=== PATIENT | male | born 1955 | race Caucasian/White ===

== ENCOUNTER 2018-01-01 05:31 | Emergency (ER) | payer MEDICARE ==
[2018-01-01] MEDS ORDERED: MORPHINE SULFATE 4MG/ML PREFILLED SYRINGE IVP ONE ×2 (05:42→07:00)
[2018-01-01] MEDS ORDERED: CEFTRIAXONE SODIUM 1 GM in 0.9 % SODIUM CHLORIDE 100ML 100 ML IVPB ONE (05:42)
--- NOTE | 2018-01-01 05:49 | Emergency Department Record ---
History of Present Illness - General Source: Patient Mode of Arrival: Wheelchair Limitations: No limitations - History of Present Illness Initial comments: 62 yo male presents with pain over the maxillary area, teeth, and sinuses for a 4 weeks. The pain has gradually increased. He has a history of sinus issues, and chronic poor dentition. No fevers. He has some mild swelling on the right side of the face over the maxillary area with mild redness that started on . No headache, dizziness, vomiting, vision changes, cough, shortness of breath. His appetite is decreased. He has not called his dentist of PCP in the last few weeks since this pain started. He is on Coumadin and Plavix. MD complaint: Tooth pain, Other (facial sinus pain) Onset/Timin -: Days(s) Location: Upper lip, Other Severity: Severe Severity scale (1-10): 10 Quality: Sharp Consistency: Constant, Getting worse Improves with: None Worsens with: Eating, Movement Context- Dental: History of dental caries, Poor dental care Associated Symptoms: Toothache <JENNA RILEY - Last Filed: 01/01/18 07:04> <Aiden Romero - Last Filed: 01/01/18 08:13> - General Chief complaint: ENT Stated complaint: SINUS PAIN Time Seen by Provider: 01/01/18 05:32 - Related Data Home Medications Medication Instructions Recorded Confirmed Last Taken Insulin Aspart [Novolog] 15 unit SQ TID 01/01/18 01/01/18 12/31/17 Insulin Glargine,Hum.rec.anlog 36 unit SQ BID 01/01/18 01/01/18 12/31/17 [Lantus] Previous Rx's Medication Instructions Recorded Cephalexin [Keflex] 500 mg PO TID #21 cap 01/01/18 Clindamycin HCl [Cleocin HCl] 300 mg PO TID #21 capsule 01/01/18 Hydrocodone/Acetaminophen [Bigler 1 tab PO Q6H PRN #10 tab 01/01/18 5mg/325mg] Allergies Allergy/AdvReac Type Severity Reaction Status Date / Time No Known Drug Allergies Allergy Verified 10/20/15 14:41 Travel Screening - Travel/Exposure Within Last 30 Days Have you traveled within the last 30 days?: No - Travel Symptoms Symptom Screening: None <JENNA RILEY - Last Filed: 01/01/18 07:04> Review of Systems Constitutional: Denies: Chills, Fever, Weakness Eyes: Denies: Eye discharge, Eye pain, Photophobia, Vision change ENT: Reports: Dental pain. Denies: Congestion, Ear pain, Epistaxis, Hearing loss, Throat pain Respiratory: Denies: Cough, Dyspnea, Hemoptysis, Stridor, Wheezes Cardiovascular: Denies: Chest pain, Palpitations, Syncope Endocrine: Denies: Fatigue, Polydipsia, Polyuria Gastrointestinal: Denies: Abdominal pain, Diarrhea, Nausea, Vomiting Genitourinary: Denies: Dysuria, Frequency, Hematuria Musculoskeletal: Denies: Arthralgia, Back pain, Joint swelling, Myalgia Skin: Denies: Bruising, Change in color, Rash Neurological: Denies: Abnormal gait, Headache, Numbness, Tingling, Tremors, Vertigo, Weakness Psychiatric: Denies: Anxiety Hematological/Lymphatic: Reports: Blood Clots (Hx of DVT). Denies: Easy bleeding, Easy bruising, Swollen glands <JENNA RILEY - Last Filed: 01/01/18 07:04> Past Medical History - SOCIAL HISTORY Smoking Status: Current every day smoker Alcohol Use: Rare Drug Use: None - RESPIRATORY Hx Respiratory Disorders: Yes Hx Bronchitis: Yes Hx Pneumonia: Yes (hx of walking pneumonia last: 7-8yrs ago) Hx Pulmonary Embolism: Yes ( both lungs) Hx Sleep Apnea: Yes Hx of CPAP: Yes - CARDIOVASCULAR Hx Cardiac Cath: Yes Hx Chest Pain: Yes (occasionally, but does not last for more than 1 minute) Hx Deep Vein Thrombosis: Yes () Hx Heart Attack: Yes ([id number] 4 NE's all together) Hx Hypertension: Yes Hx Coronary Artery Disease: Yes Hx Coronary Stent: Yes (7) Comment:: High cholesterol - NEURO Hx Neuro Disorders: Yes Hx CVA: Yes Hx Dizziness: Yes Hx Neuropathy: Yes (right hip) - GI Hx GI Disorders: Yes Hx Abdominal Pain: Yes Hx Reflux: Yes Hx Rectal Bleeding: Yes Hx Wt Loss/Wt Gain: Yes (100 in 1 year) - Hx Genitourinary Disorders: No - ENDOCRINE Hx Endocrine Disorders: Yes - MUSCULOSKELETAL Hx Musculoskeletal Disorders: Yes Hx Arthritis: Yes (hands) Hx Back Injury: Yes (thrown from horse) - PSYCH Hx Psych Problems: Yes Hx Depression: Yes - HEMATOLOGY/ONCOLOGY Hx Hematology/Oncology Disorders: Yes Hx Anemia: Yes <JENNA RILEY - Last Filed: 01/01/18 07:04> Family Medical History Any Significant Family History?: Yes Hx Cancer: Father, Mother, Grandparents *Cancer Comment: , lung Hx Diabetes: Brother/Sister Hx Heart Disease: Brother/Sister <JENNA RILEY - Last Filed: 01/01/18 07:04> Physical Exam - General General Appearance: Alert, Oriented x3, Cooperative, No acute distress Limitations: No limitations - Head Head exam: Atraumatic, Normocephalic. negative: Normal inspection Image of Face/Head: 1 - tenderness, mild swelling, mild erythema - Eye Eye exam: Normal appearance, Periorbital swelling (mild lower lid swelling), Periorbital tenderness (tender under the right eye). negative: Conjunctival injection, Scleral icterus - ENT ENT exam: Mucous membranes moist, TM's normal bilaterally (Normal R TM). negative: Normal exam, Normal orophraynx Ear exam: Normal external inspection Nasal Exam: Normal inspection Mouth exam: Tongue normal. negative: Drooling, Muffled voice, Tongue elevation Teeth exam: Dental caries, Dental tenderness # Throat exam: Normal inspection. negative: Tonsillar erythema, Tonsillomegaly, Tonsillar exudate, R peritonsillar mass, L peritonsillar mass - Neck Neck exam: Normal inspection, Full ROM. negative: Lymphadenopathy, Tenderness - Respiratory Respiratory exam: Normal lung sounds bilaterally. negative: Respiratory distress - Cardiovascular Cardiovascular Exam: Regular rate, Normal rhythm, Normal heart sounds - GI/Abdominal GI/Abdominal exam: Soft. negative: Tenderness - Rectal Rectal exam: Deferred - exam: Deferred - Extremities Extremities exam: Full ROM - Back Back exam: Reports: Normal inspection - Neurological Neurological exam: Alert, Normal gait, Oriented X3. negative: Altered - Psychiatric Psychiatric exam: Normal affect, Normal mood. negative: Agitated, Anxious - Skin Skin exam: Dry, Intact, Normal color, Warm <JENNA RILEY - Last Filed: 01/01/18 07:04> Course Vital Signs 01/01/18 05:36 Temperature 98 F Pulse Rate [ 67 Pulse Ox Probe] Respiratory 16 Rate Blood Pressure 181/95 [Left Arm] Pulse Ox 96 - Reevaluation(s) Reevaluation #1: 01/01/18 05:50 The vitals were reviewed No acute changes The examination is consistent with infection in the maxillary area. CT scan with contrast ordered. 01/01/18 06:16 BMP reviewed. GLucose elevate at 379 HCO3 21 AG is 21 01/01/18 06:16 The patient states he does not regularly check his sugar. The last few months his sugar has been mostly in the 300's when checked He last spoke with his doctor about his sugar several months ago. 01/01/18 06:58 Ph is 7.34 <JENNA RILEY - Last Filed: 01/01/18 07:04> Vital Signs 01/01/18 01/01/18 05:36 07:07 Temperature 98 F Pulse Rate [ 67 61 Pulse Ox Probe] Respiratory 16 20 Rate Blood Pressure 181/95 [Left Arm] Blood Pressure 159/79 [Right Arm] Pulse Ox 96 94 L - Reevaluation(s) Reevaluation #2: The patient is doing well at this time. His temp is normal but he is still having pain above the teeth over the R maxilla. The CT does demonstrate an infection but no abscess. We will discharge the patient on oral Abx's and have him F/U with his Dentist and family doctor. 01/01/18 08:11 <Aiden Romero - Last Filed: 01/01/18 08:13> Medical Decision Making - Lab Data Result diagrams: 01/01/18 05:48 01/01/18 05:48 <JENNA RILEY - Last Filed: 01/01/18 07:04> - Lab Data Result diagrams: 01/01/18 05:48 01/01/18 05:48 Lab Results 01/01/18 01/01/18 01/01/18 Range/Units 05:48 05:48 05:48 WBC 8.0 (4.2-12.2) K/uL RBC 4.21 L (4.40-5.70) M/uL Hgb 12.2 L (14.0-18.0) gm/dl Hct 36.0 L (42.0-52.0) % MCV 85.5 (81-97) fl MCH 28.9 (27-33) pg MCHC 33.9 (32-36) g/dl RDW 13.6 (11.5-14.5) % Plt Count 292 (130-400) K/uL MPV 9.8 (7.4-10.4) fl Gran % 64.9 (47-80) % Lymphocytes % 21.8 (16-45) % Monocytes % 10.7 H (0-9) % Eosinophils % 2.4 (0-6) % Basophils % 0.2 (0-6) % PT 24.3 H (9.5-12.1) SECONDS INR 2.2 VBG pH (7.33-7.43) Sodium 137 (136-145) mmol/L Potassium 4.2 (3.4-4.5) mmol/L Chloride 95 L (98-107) mmol/L Carbon Dioxide 21.0 L (22-29) mmol/L Anion Gap 21.0 H (7-16) BUN 22 (8-23) mg/dL Creatinine 1.2 (0.7-1.2) mg/dL Estimated GFR > 60 mL/min POC Glucose (70-110) mg/dL Random Glucose 379 H (74-109) mg/dL Calcium 9.1 (8.8-10.2) mg/dL 18 01/01/18 Range/Units 06:30 07:39 WBC (4.2-12.2) K/uL RBC (4.40-5.70) M/uL Hgb (14.0-18.0) gm/dl Hct (42.0-52.0) % MCV (81-97) fl MCH (27-33) pg MCHC (32-36) g/dl RDW (11.5-14.5) % Plt Count (130-400) K/uL MPV (7.4-10.4) fl Gran % (47-80) % Lymphocytes % (16-45) % Monocytes % (0-9) % Eosinophils % (0-6) % Basophils % (0-6) % PT (9.5-12.1) SECONDS INR VBG pH 7.34 (7.33-7.43) Sodium (136-145) mmol/L Potassium (3.4-4.5) mmol/L Chloride (98-107) mmol/L Carbon Dioxide (22-29) mmol/L Anion Gap (7-16) BUN (8-23) mg/dL Creatinine (0.7-1.2) mg/dL Estimated GFR mL/min POC Glucose 337 H (70-110) mg/dL Random Glucose (74-109) mg/dL Calcium (8.8-10.2) mg/dL <Aiden Romero - Last Filed: 01/01/18 08:13> Disposition Disposition: Discharge <JENNA RILEY - Last Filed: 01/01/18 07:04> Time of Disposition: 08:13 <Aiden Romero - Last Filed: 01/01/18 08:13> Clinical Impression: Cellulitis Disposition: Home, Self-Care Condition: (1) Good Instructions: Dental Abscess (ED), Cellulitis (ED) Additional Instructions: Call your doctor for a recheck today Call your dentist for follow up this week Take the antibiotics as directed Return if worse, fever or new concerns Prescriptions: Cephalexin [Keflex] 500 mg PO TID #21 cap Clindamycin HCl [Cleocin HCl] 300 mg PO TID #21 capsule Hydrocodone/Acetaminophen [Bigler 5mg/325mg] 1 tab PO Q6H PRN #10 tab PRN Reason: Pain - General Forms: Patient Portal Access Quality - Blood Pressure Screening Does Patient Have Any of the Following: No Blood Pressure Classification: Hypertensive Reading Systolic Measurement: 181 Diastolic Measurement: 95 <JENNA RILEY - Last Filed: 01/01/18 07:04> - Blood Pressure Screening Does Patient Have Any of the Following: No Blood Pressure Classification: Hypertensive Reading Systolic Measurement: 159 Diastolic Measurement: 79 <Aiden Romero - Last Filed: 01/01/18 08:13>
[2018-01-01 05:59] LABS: BASO % 0.2 % (0-6); EOS % 2.4 % (0-6); GRAN % 64.9 % (47-80); HEMOGLOBIN 12.2 gm/dl (14.0-18.0); LYMPH % 21.8 % (16-45); MEAN CELL VOLUME 85.5 fl (81-97); MEAN CORPUSCULAR HEMOGLOBIN 28.9 pg (27-33); MEAN CORPUSCULAR HGB CONC 33.9 g/dl (32-36); MEAN PLATELET VOLUME 9.8 fl (7.4-10.4); MONO % 10.7 % (0-9); PLATELET COUNT 292 K/uL (130-400); RED BLOOD COUNT 4.21 M/uL (4.40-5.70); RED CELL DISTRIBUTION WIDTH 13.6 % (11.5-14.5)
[2018-01-01 06:08] LABS: BLOOD UREA NITROGEN 22 mg/dL (8-23); CREATININE 1.2 mg/dL (0.7-1.2); EST GLOMERULAR FILTRATION RATE > 60 mL/min
[2018-01-01 06:10] LABS: GLUCOSE,RANDOM 379 mg/dL (74-109); INR 2.2; PROTHROMBIN TIME (PATIENT) 24.3 SECONDS (9.5-12.1)
[2018-01-01] MEDS ORDERED: HUMULIN R 100 UNIT/ML VIAL SQ ONE (06:15)
[2018-01-01] MEDS ORDERED: 0.9 % SODIUM CHLORIDE 1,000 ML BAG IV ONE (06:15)
--- NOTE | 2018-01-02 08:24 | CT SCAN REPORT ---
EXAM: CT OF THE MAXILLOFACIAL BONES WITHOUT AND WITH CONTRAST HISTORY: FACIAL SWELLING AND DENTAL PAIN FOR THREE DAYS, NO KNOWN INJURY. FACIAL PAIN IS LOCATED BILATERALLY ACROSS THE FACE. TECHNIQUE: Axial CT scan of the maxillofacial structures was performed both prior to and then after the intravenous administration of 100 ml of Omnipaque 300 as the IV contrast. A preliminary report was provided by [facility] at the time of the scan. Comparison: None. FINDINGS: The paranasal sinuses appear clear with no air fluid levels evident within the paranasal sinuses. The visualized mastoids and middle ear cavities also appear clear. The orbits appear unremarkable. There is some deviation of the nasal septum to the left and there is mikael bullosa formation in the right middle turbinate. Prominent degenerative change at the odontoid-anterior arch of C1 articulation. Narrowing of some of the upper cervical intervertebral disk spaces as well with some associated hypertrophic spurring. There does appear to be some soft tissue swelling overlying the anterior aspect of the face at the level of the mandible and on the right along the inferior aspect of the maxilla anteriorly as well. No discreet fluid collection to suggest an abscess identified. Several of the teeth, particularly maxillary teeth, are absent, however, there is probably a large periapical abscess associated with the root of the right lateral maxillary incisor with likely a large dental caries involving this tooth as well. There is probably less prominent radiolucency around the root of the right bicuspid as well. There is dental disease involving the right maxillary lateral incisor in particular may be the source of the facial pain/infection and dental consultation may be useful. IMPRESSION: 1. THE PARANASAL SINUSES ALL APPEAR ESSENTIALLY CLEAR. 2. DEVIATION OF THE NASAL SEPTUM TO THE LEFT WITH MIKAEL BULLOSA FORMATION RIGHT MIDDLE TERMINATE. 3. EXTENSIVE DENTAL DISEASE INVOLVING THE RIGHT MAXILLARY LATERAL INCISOR WITH SOME SOFT TISSUE SWELLING IN THE FACE ANTERIOR TO THIS IN PARTICULAR. THIS MAY REPRESENT SOME ASSOCIATED CELLULITIS. NO DISCREET ABSCESS IDENTIFIED. JOB NUMBER: [id number] [facility]
== END 2018-01-01 08:24 | disposition home or self-care (01) ==
LOC: ER 05:31
DX: L03.211 Cellulitis of face (principal); K02.9 Dental caries, unspecified; R51 Headache; F17.210 Nicotine dependence, cigarettes, uncomplicated; I10 Essential (primary) hypertension; I25.2 Old myocardial infarction; Z79.01 Long term (current) use of anticoagulants
CPT/HCPCS: 99284 ×2; 96376; 96372; 96365; 96375; 82800; 85025; 85610; 80048; 36416; 82948; 70487; Q9967; J2274; J7030

== ENCOUNTER 2018-02-22 14:19 | Inpatient (IN) | payer MEDICARE ==
--- NOTE | 2018-02-22 14:33 | Emergency Department Record ---
History of Present Illness - General Chief complaint: Hypergylcemia Stated complaint: HIGH BLOOD SUGAR Time Seen by Provider: 02/22/18 14:29 Source: Patient Mode of Arrival: Ambulatory Limitations: No limitations - History of Present Illness Initial comments: 62 yo male presents with elevated blood sugar levels. The patient is an insulin dependent diabetic. His sugar today registered HIGH. He states he has not checked his glucose for at least three months. He has had about 1 month of front upper tooth infection. He has been thirsty and urinating more. NO confusion, headaches, nausea or vomiting. No chest pain. He is on coumadin for "his heart". He is unsure of the last INR. No edema or shortness of breath. NO fevers. No nausea, vomiting or diarrhea. Generally speaking he states he feels fine just more tired than usual. MD Complaint: Generalized weakness Onset/Timin -: Days(s) Location: Generalized Severity: Moderate Consistency: Constant Improves with: None Worsens with: Morning Associated Symptoms: Denies other symptoms - Rosina Coma Scale Eye Response: (4) Open spontaneously Motor Response: (6) Obeys commands Verbal Response: (5) Oriented Calcium Total: 15 - Related Data Home Medications Medication Instructions Recorded Confirmed Last Taken Duloxetine HCl [Cymbalta] 60 mg PO BID 02/22/18 02/22/18 Unknown Allergies Allergy/AdvReac Type Severity Reaction Status Date / Time No Known Drug Allergies Allergy Verified 10/20/15 14:41 Travel Screening - Travel/Exposure Within Last 30 Days Have you traveled within the last 30 days?: No Review of Systems Constitutional: Reports: Weakness. Denies: Chills, Fever, Night sweats Eyes: Denies: Eye discharge ENT: Reports: As per HPI, Dental pain. Denies: Congestion, Throat pain Respiratory: Denies: Cough, Dyspnea, Wheezes Cardiovascular: Denies: Chest pain, Syncope Endocrine: Reports: Fatigue, Polyuria. Denies: Polydipsia Gastrointestinal: Denies: Abdominal pain Genitourinary: Reports: Frequency. Denies: Dysuria, Hematuria, Retention, Urgency Musculoskeletal: Denies: Arthralgia, Back pain, Neck pain Skin: Denies: Bruising, Change in color, Rash Neurological: Denies: Headache, Numbness, Weakness Psychiatric: Denies: Anxiety Hematological/Lymphatic: Denies: Blood Clots, Easy bleeding, Easy bruising, Swollen glands Past Medical History - SOCIAL HISTORY Smoking Status: Former smoker Alcohol Use: None Drug Use: None - RESPIRATORY Hx Respiratory Disorders: Yes Hx Bronchitis: Yes Hx Pneumonia: Yes (hx of walking pneumonia last: 7-8yrs ago) Hx Pulmonary Embolism: Yes ( both lungs) Hx Sleep Apnea: Yes Hx of CPAP: Yes - CARDIOVASCULAR Hx Cardio Disorders: Yes Hx Cardiac Cath: Yes Hx Chest Pain: Yes (occasionally, but does not last for more than 1 minute) Hx Deep Vein Thrombosis: Yes () Hx Heart Attack: Yes ( 4 DE's all together) Hx Hypertension: Yes Hx Coronary Artery Disease: Yes Hx Coronary Stent: Yes (7) Comment:: High cholesterol - NEURO Hx Neuro Disorders: Yes Hx CVA: Yes Hx Dizziness: Yes Hx Neuropathy: Yes (right hip) - GI Hx GI Disorders: Yes Hx Abdominal Pain: Yes Hx Reflux: Yes Hx Rectal Bleeding: Yes Hx Wt Loss/Wt Gain: Yes (100 in 1 year) - Hx Genitourinary Disorders: No - ENDOCRINE Hx Endocrine Disorders: Yes Hx Diabetes: Yes - MUSCULOSKELETAL Hx Musculoskeletal Disorders: Yes Hx Arthritis: Yes (hands) Hx Back Injury: Yes (thrown from horse) - PSYCH Hx Psych Problems: Yes Hx Depression: Yes - HEMATOLOGY/ONCOLOGY Hx Hematology/Oncology Disorders: Yes Hx Anemia: Yes Family Medical History Any Significant Family History?: Yes Hx Cancer: Father, Mother, Grandparents *Cancer Comment: , lung Hx Diabetes: Brother/Sister Hx Heart Disease: Brother/Sister Physical Exam - General General Appearance: Alert, Oriented x3, Cooperative, No acute distress Limitations: No limitations - Head Head exam: Normal inspection - Eye Eye exam: Normal appearance. negative: Conjunctival injection, Periorbital swelling, Periorbital tenderness, Scleral icterus - ENT ENT exam: Normal exam Ear exam: Normal external inspection Nasal Exam: Normal inspection Mouth exam: Normal external inspection Teeth exam: Dental caries, Dental tenderness # (7) Throat exam: Normal inspection - Neck Neck exam: Normal inspection, Full ROM. negative: Tenderness - Respiratory Respiratory exam: Normal lung sounds bilaterally. negative: Respiratory distress, Rhonchi, Stridor, Wheezes - Cardiovascular Cardiovascular Exam: Regular rate, Normal rhythm, Normal heart sounds - GI/Abdominal GI/Abdominal exam: Soft, Other (Morbidly obese). negative: Distended, Guarding , Rebound, Rigid, Tenderness - Rectal Rectal exam: Deferred - exam: Deferred - Extremities Extremities exam: Normal inspection, Full ROM, Normal capillary refill. negative: Tenderness - Back Back exam: Denies: CVA tenderness (R), CVA tenderness (L) - Neurological Neurological exam: Alert, Normal gait, Oriented X3 - Psychiatric Psychiatric exam: Normal affect, Normal mood - Skin Skin exam: Dry, Intact, Normal color, Warm Course - Reevaluation(s) Reevaluation #1: Accu check was high on bedside testing. 02/22/18 14:47 02/22/18 15:00 The pH is 7.34 02/22/18 15:12 CMP reviewed. Glucose is 856 HCO3 is 20 AG is 18 Acetone is NEGATIVE K is 4.8 BUN is 42 and CR is 1.5 LFT's are normal 02/22/18 15:26 Calcium and Magnesium normal range The patient most consistent with HHS with normal pH and Acetone. IVF fluid replacement currently ongoing. Awaiting final labs. 02/22/18 15:32 The case was discussed with Blaire Morataya of the admission service. The patient is stable and non ill in appearance. Normal vitals and mental status. She will admit the patient for glycemic control, hydration, electrolyte management. Medical Decision Making - Lab Data Result diagrams: 02/22/18 14:30 02/22/18 17:49 Disposition Disposition: Admit Clinical Impression: Hyperglycemia, Dehydration, Renal insufficiency, mild, Dental infection Disposition: Still a Patient at [facility] Decision to Admit: Admit from ER Decision to Admit Date: 02/22/18 Decision to Admit Time: 15:34 Condition: (2) Stable Time of Disposition: 15:34 Quality - Quality Measures Quality Measures: N/A - Blood Pressure Screening Does Patient Have Any of the Following: Active Dx of HTN Blood Pressure Classification: Hypertensive Reading Systolic Measurement: 146 Diastolic Measurement: 74 Screening for High Blood Pressure: Patient Exclusion, Hx of HTN [G9744] Pre-Hypertensive Follow-up Interventions: Referral to alternative/primary care provider.
[2018-02-22 14:41] LABS: BASO % 0.7 % (0-6); EOS % 3.1 % (0-6); GRAN % 70.4 % (47-80); HEMATOCRIT 33.3 % (42.0-52.0); HEMOGLOBIN 11.3 gm/dl (14.0-18.0); LYMPH % 18.6 % (16-45); MEAN CELL VOLUME 83.9 fl (81-97); MEAN CORPUSCULAR HGB CONC 33.9 g/dl (32-36); MEAN PLATELET VOLUME 10.3 fl (7.4-10.4); MONO % 7.2 % (0-9); PLATELET COUNT 311 K/uL (130-400); RED BLOOD COUNT 3.97 M/uL (4.40-5.70); RED CELL DISTRIBUTION WIDTH 13.6 % (11.5-14.5); WHITE BLOOD COUNT W/O DIFF 6.8 K/uL (4.2-12.2)
[2018-02-22 14:42] LABS: MEAN CORPUSCULAR HEMOGLOBIN 28.4 pg (27-33)
[2018-02-22] MEDS ORDERED: 0.9 % SODIUM CHLORIDE 1,000 ML BAG IV ONE (14:44)
[2018-02-22 14:49] LABS: BLOOD UREA NITROGEN 42 mg/dL (8-23); CREATININE 1.5 mg/dL (0.7-1.2); EST GLOMERULAR FILTRATION RATE 50 mL/min; TOTAL PROTEIN 7.9 g/dL (6.6-8.7)
[2018-02-22 14:54] LABS: ALB/GLOB RATIO 1.4 (1.1-1.8); ALBUMIN 4.6 g/dL (4.0-5.0); ALKALINE PHOSPHATASE 113 U/L (40-129); ALT/SGPT 18 U/L (<41); AST/SGOT 15 U/L (10.0-50.0)
[2018-02-22 15:03] LABS: ACETONE,SERUM NEGATIVE (NEGATIVE)
[2018-02-22 15:07] LABS: GLUCOSE,RANDOM > 856 mg/dL (74-109)
[2018-02-22 15:19] LABS: INR 0.9; PARTIAL THROMBOPLASTIN TIME 30.3 SECONDS (24.5-39.1)
[2018-02-22 15:22] LABS: URINE APPEARANCE CLEAR; URINE BILIRUBIN NEGATIVE (NEGATIVE); URINE BLOOD NEGATIVE (NEGATIVE); URINE COLOR YELLOW; URINE KETONE NEGATIVE (NEGATIVE); URINE LEUKOCYTE ESTERASE NEGATIVE (NEGATIVE); URINE NITRITE NEGATIVE (NEGATIVE); URINE PROTEIN NEGATIVE (NEGATIVE); URINE UROBILINOGEN 0.2 E.U./dL (0.20 - 1.00)
[2018-02-22] MEDS ORDERED: POTASSIUM CHL 20MEQ IN 1L NS 20 MEQ/1,000 ML BAG IV ONE (15:34)
[2018-02-22 15:43] LABS: URINE GLUCOSE (UA) >=1000 mg/dL (NEGATIVE)
[2018-02-22] MEDS ORDERED: INSULIN REGULAR, HUMAN 100 UNIT in 0.9 % SODIUM CHLORIDE 100ML 100 ML IV SCH ×2 (15:45)
[2018-02-22] MEDS ORDERED: ACETAMINOPHEN 500 MG TABLET PO PRN (17:27)
[2018-02-22 18:08] LABS: CREATININE 1.3 mg/dL (0.7-1.2)
[2018-02-22] MEDS: POTASSIUM CHL 20MEQ IN 1L NS 20 MEQ/1,000 ML BAG IV SCH ×3 (18:20→23:57)
[2018-02-22] MEDS: AMPICILLIN SODIUM/SULBACTAM NA 1.5 G in 0.9 % SODIUM CHLORIDE 100ML 100 ML IVPB SCH (18:51)
[2018-02-22 20:03] LABS: CREATININE 1.4 mg/dL (0.7-1.2)
[2018-02-22] MEDS: GEMFIBROZIL 600 MG TABLET PO SCH (21:45)
[2018-02-22] MEDS: PANTOPRAZOLE SODIUM 40 MG TABLET PO SCH (21:45)
[2018-02-22] MEDS: DULOXETINE HCL 30 MG CAPSULE.DR PO SCH (21:45)
[2018-02-22] MEDS: GABAPENTIN 300 MG CAPSULE PO SCH (21:45)
[2018-02-22] MEDS: METOPROLOL TART 50 MG TABLET PO SCH (21:45)
[2018-02-22] MEDS ORDERED: TRAZODONE 50 MG TABLET PO SCH (22:00)
[2018-02-22 22:23] LABS: CREATININE 1.4 mg/dL (0.7-1.2)
[2018-02-23] MEDS: AMPICILLIN SODIUM/SULBACTAM NA 1.5 G in 0.9 % SODIUM CHLORIDE 100ML 100 ML IVPB SCH ×3 (00:03→12:08)
--- NOTE | 2018-02-23 06:44 | History & Physical ---
History of Present Illness - Date of Service Date of Service for History & Physical: 02/23/18 - History of Present Illness Admitting Diagnosis: hyperglycemia, dehydration, dental infection History of Present Illness: Mr. Rhoades ia a 62 year-old male who presented to the ED on 02/22/18 with c/o elevated blood sugar- his meter at home registered "high". He stated that he had not checked his sugar at home prior to this for about 3 months, but that he has been taking his diabetes meds as directed. He has had a front upper tooth infection for about 1 month. He states has has been increasingly thirsty and urinating more often, he denied confusion, headaches, nausea, and vomitis. No chest pain. No fever. His history includes IDDM, coumadin use ( pt. is unsure of specific reason or last INR), HTN, MIx4 [id number], DVT, PE, RASHEL , HL, CVA, ex-smoker, depression, arthritis, and GERD. He states that his PCP is at a free clinic in [place], however, he is looking to establish care elsewhere. In the ED, his vital signs were stable. His initial glucose was 550 at 0730 , it increased to 856 at 1430. Urine was negative for ketones, pH was 7.34, HCO3 20, AG 18, negative acetone, K 4.8, BUN 42, Cr 1.5, normal LFTs. Pt. was admitted for glycemic control, hydration, and electrolyte management. IV abx were also initiated for his tooth infection. 02/22/18 1700: Pt. just arrived to med/surg unit. He is sitting up in bed. He denies headache/n/v. Insulin drip started at 5 units per hour, will continue to monitor labs, tele, and vitals. A1C 14.9- goal is to decrease glucose near pt's baseline- no lower than 250 during hospitalization to avoid hypoglycemia symptoms. 02/23/18 1010: Pt. is sitting up in bed. Insulin drip was stopped at 0500, accucheck this morning was 313. Will restart pt's home lantus dose of 36 units BID and start moderate sliding scale QIDAC. Lytes have remained stable. Continuing unasyn 1.5g q3h for dental infection. Case management set pt. up to establish care in the [facility]. Travel Screening - Travel/Exposure Within Last 30 Days Have you traveled within the last 30 days?: No - Travel/Exposure Within Last Year Have you traveled outside the [place] in the last year?: No - Additonal Travel Details Have you been exposed to anyone with a communicable illness?: No - Travel Symptoms Symptom Screening: None Review of Systems Constitutional: Reports: Weakness. Denies: Chills, Fever, Night sweats Eyes: Denies: Eye discharge ENT: Reports: As per HPI, Dental pain. Denies: Congestion, Throat pain Respiratory: Denies: Cough, Dyspnea, Wheezes Cardiovascular: Denies: Chest pain, Syncope Endocrine: Reports: Fatigue, Polyuria. Denies: Polydipsia Gastrointestinal: Denies: Abdominal pain Genitourinary: Reports: Frequency. Denies: Dysuria, Hematuria, Retention, Urgency Musculoskeletal: Denies: Arthralgia, Back pain, Neck pain Skin: Denies: Bruising, Change in color, Rash Neurological: Denies: Headache, Numbness, Weakness Psychiatric: Denies: Anxiety Hematological/Lymphatic: Denies: Blood Clots, Easy bleeding, Easy bruising, Swollen glands Past Medical History - SOCIAL HISTORY Smoking Status: Former smoker Alcohol Use: None Drug Use: None - RESPIRATORY Hx Respiratory Disorders: Yes Hx Bronchitis: Yes Hx Pneumonia: Yes (hx of walking pneumonia last: 7-8yrs ago) Hx Pulmonary Embolism: Yes ( both lungs) Hx Sleep Apnea: Yes Hx of CPAP: Yes - CARDIOVASCULAR Hx Cardio Disorders: Yes Hx Cardiac Cath: Yes Hx Chest Pain: Yes (occasionally, but does not last for more than 1 minute) Hx Deep Vein Thrombosis: Yes () Hx Heart Attack: Yes ( 4 NM's all together) Hx Hypertension: Yes Hx Coronary Artery Disease: Yes Hx Coronary Stent: Yes (7) Comment:: High cholesterol - NEURO Hx Neuro Disorders: Yes Hx CVA: Yes Hx Dizziness: Yes Hx Neuropathy: Yes (right hip) - GI Hx GI Disorders: Yes Hx Abdominal Pain: Yes Hx Reflux: Yes Hx Rectal Bleeding: Yes Hx Wt Loss/Wt Gain: Yes (100 in 1 year) - Hx Genitourinary Disorders: No - ENDOCRINE Hx Endocrine Disorders: Yes Hx Diabetes: Yes - MUSCULOSKELETAL Hx Musculoskeletal Disorders: Yes Hx Arthritis: Yes (hands) Hx Back Injury: Yes (thrown from horse) - PSYCH Hx Psych Problems: Yes Hx Depression: Yes - HEMATOLOGY/ONCOLOGY Hx Hematology/Oncology Disorders: Yes Hx Anemia: Yes Family Medical History Any Significant Family History?: Yes Hx Cancer: Father, Mother, Grandparents *Cancer Comment: , lung Hx Diabetes: Brother/Sister Hx Heart Disease: Brother/Sister H&P Meds/Allergies - Allergies Allergies: Allergies Allergy/AdvReac Type Severity Reaction Status Date / Time No Known Drug Allergies Allergy Verified 10/20/15 14:41 - Home Medications Home Medications Medication Instructions Recorded Confirmed Last Taken Duloxetine HCl [Cymbalta] 60 mg PO BID 02/22/18 02/22/18 Unknown - Active Medications Active Medications: Current Medications Acetaminophen (Tylenol 500mg Tab) 1,000 mg PO Q6H PRN PRN Reason: PAIN - MILD(1-4)/FEVER Atorvastatin Calcium (Lipitor) 80 mg PO DAILY [facility] Clopidogrel Bisulfate (Plavix) 75 mg PO DAILY [facility] Duloxetine HCl (Cymbalta) 60 mg PO BID [facility] Last Admin: 02/22/18 21:45 Dose: 60 mg Gabapentin (Neurontin) 300 mg PO BID [facility] Last Admin: 02/22/18 21:45 Dose: 300 mg Gemfibrozil (Lopid) 600 mg PO BID [facility] Last Admin: 02/22/18 21:45 Dose: 600 mg Insulin Human Regular 100 unit (/ Sodium Chloride) 101 mls @ 5.05 mls/hr IV TITRATE [facility]; Protocol Last Titration: 02/23/18 05:50 Dose: 0 units/hr, 0 mls/hr Ampicillin Sodium/Sulbactam (Sodium 1.5 g/ Sodium Chloride) 100 mls @ 200 mls/ hr IVPB Q6H [facility] Stop: 02/27/18 18:01 Last Infusion: 02/23/18 06:10 Dose: Infused Potassium Chloride/Sodium Chloride ( Potassium Chl 20meq/) 20 meq in 1,000 mls @ 125 mls/hr IV Q8H [facility] Last Admin: 02/22/18 23:57 Dose: 125 mls/hr Isosorbide Mononitrate (Imdur) 30 mg PO DAILY [facility] Metoprolol Tartrate (Lopressor) 100 mg PO BID [facility] Last Admin: 02/22/18 21:45 Dose: 100 mg Pantoprazole Sodium (Protonix) 40 mg PO BID [facility] Last Admin: 02/22/18 21:45 Dose: 40 mg Patient Own Med: (Symbicort 160-4.5) 1 each INH DAILY [facility] Trazodone HCl (Desyrel) 50 mg PO QHS [facility] Last Admin: 02/22/18 21:44 Dose: 50 mg Warfarin Sodium (Coumadin) 5 mg PO DAILY@1600 [facility] Warfarin Sodium (Coumadin) 1 mg PO [id number] [facility] Physical Exam - Vital Signs Vital Signs: Vital Signs - Last 24 Hrs Temp Pulse Pulse Pulse Resp BP BP 02/23/18 02:00 97.5 F L 59 L 16 159/82 02/22/18 22:00 69 16 136/81 02/22/18 19:41 97.9 F 81 16 02/22/18 18:00 98.0 F 80 16 156/82 02/22/18 16:41 74 18 146/74 02/22/18 16:35 98.2 F 75 18 158/73 02/22/18 15:55 67 18 149/81 02/22/18 14:35 98.8 F 79 18 129/76 BP Pulse Ox 02/23/18 02:00 97 02/22/18 22:00 98 02/22/18 19:41 133/66 95 02/22/18 18:00 94 L 02/22/18 16:41 98 02/22/18 16:35 95 02/22/18 15:55 97 02/22/18 14:35 96 - General General Appearance: Alert, Oriented x3, Cooperative, No acute distress Limitations: No limitations - Head Head exam: Normal inspection - Eye Eye exam: Normal appearance. negative: Conjunctival injection, Periorbital swelling, Periorbital tenderness, Scleral icterus - ENT ENT exam: Normal exam Ear exam: Normal external inspection Nasal Exam: Normal inspection Mouth exam: Normal external inspection Teeth exam: Dental caries, Dental tenderness # (7) Throat exam: Normal inspection - Neck Neck exam: Normal inspection, Full ROM. negative: Tenderness - Respiratory Respiratory exam: Normal lung sounds bilaterally. negative: Respiratory distress, Rhonchi, Stridor, Wheezes - Cardiovascular Cardiovascular Exam: Regular rate, Normal rhythm, Normal heart sounds - GI/Abdominal GI/Abdominal exam: Soft, Other (Morbidly obese). negative: Distended, Guarding , Rebound, Rigid, Tenderness - Rectal Rectal exam: Deferred - exam: Deferred - Extremities Extremities exam: Normal inspection, Full ROM, Normal capillary refill. negative: Tenderness - Back Back exam: Denies: CVA tenderness (R), CVA tenderness (L) - Neurological Neurological exam: Alert, Normal gait, Oriented X3 - Psychiatric Psychiatric exam: Normal affect, Normal mood - Skin Skin exam: Dry, Intact, Normal color, Warm Results - Labs Result Diagrams: 02/22/18 14:30 02/23/18 07:49 Labs Last 24 Hours: Laboratory Results - last 24 hr 02/22/18 02/22/18 02/22/18 07:40 14:30 14:30 WBC 6.8 RBC 3.97 L Hgb 11.3 L Hct 33.3 L MCV 83.9 MCH 28.4 MCHC 33.9 RDW 13.6 Plt Count 311 MPV 10.3 Gran % 70.4 Lymphocytes % 18.6 Monocytes % 7.2 Eosinophils % 3.1 Basophils % 0.7 PT INR APTT VBG pH 7.34 Sodium 127 L 121 L Potassium 4.5 4.8 H Chloride 90 L 83 L Carbon Dioxide 23.0 20.0 L Anion Gap 14.0 18.0 H BUN 37 H 42 H Creatinine 1.4 H 1.5 H Estimated GFR 55 50 POC Glucose Random Glucose 550 H* > 856 H* Hemoglobin A1c Calcium 9.3 9.3 Magnesium Total Bilirubin 0.40 AST 15 ALT 18 Alkaline Phosphatase 113 Total Protein 7.9 Albumin 4.6 Globulin 3.3 Albumin/Globulin Ratio 1.4 Urine Color Urine Appearance Urine pH Ur Specific [place] Urine Protein Urine Glucose (UA) Urine Ketones Urine Blood Urine Nitrite Urine Bilirubin Urine Urobilinogen Ur Leukocyte Esterase Acetone, Qual Negative 02/22/18 02/22/18 02/22/18 14:30 14:30 14:36 WBC RBC Hgb Hct MCV MCH MCHC RDW Plt Count MPV Gran % Lymphocytes % Monocytes % Eosinophils % Basophils % PT 10.0 INR 0.9 APTT 30.3 VBG pH Sodium Potassium Chloride Carbon Dioxide Anion Gap BUN Creatinine Estimated GFR POC Glucose Random Glucose Hemoglobin A1c 14.90 H Calcium Magnesium Total Bilirubin AST ALT Alkaline Phosphatase Total Protein Albumin Globulin Albumin/Globulin Ratio Urine Color Urine Appearance Urine pH Ur Specific [place] Urine Protein Urine Glucose (UA) Urine Ketones Urine Blood Urine Nitrite Urine Bilirubin Urine Urobilinogen Ur Leukocyte Esterase Acetone, Qual 02/22/18 02/22/18 02/22/18 14:45 15:15 17:33 WBC RBC Hgb Hct MCV MCH MCHC RDW Plt Count MPV Gran % Lymphocytes % Monocytes % Eosinophils % Basophils % PT INR APTT VBG pH Sodium Potassium Chloride Carbon Dioxide Anion Gap BUN Creatinine Estimated GFR POC Glucose Random Glucose Cancelled Hemoglobin A1c Calcium Magnesium 2.1 Total Bilirubin AST ALT Alkaline Phosphatase Total Protein Albumin Globulin Albumin/Globulin Ratio Urine Color Yellow Urine Appearance Clear Urine pH 5.5 Ur Specific [place] 1.010 Urine Protein Negative Urine Glucose (UA) >=1000 mg/dl H Urine Ketones Negative Urine Blood Negative Urine Nitrite Negative Urine Bilirubin Negative Urine Urobilinogen 0.2 Ur Leukocyte Esterase Negative Acetone, Qual 02/22/18 02/22/18 02/22/18 17:49 21:40 22:00 WBC RBC Hgb Hct MCV MCH MCHC RDW Plt Count MPV Gran % Lymphocytes % Monocytes % Eosinophils % Basophils % PT INR APTT VBG pH Sodium 126 L 128 L Potassium 4.3 4.3 Chloride 89 L 91 L Carbon Dioxide 21.0 L 21.0 L Anion Gap 16.0 16.0 BUN 39 H 36 H Creatinine 1.3 H 1.4 H Estimated GFR 59 55 POC Glucose Cancelled Random Glucose 606 H* 502 H* Hemoglobin A1c Calcium 9.2 9.1 Magnesium Total Bilirubin AST ALT Alkaline Phosphatase Total Protein Albumin Globulin Albumin/Globulin Ratio Urine Color Urine Appearance Urine pH Ur Specific [place] Urine Protein Urine Glucose (UA) Urine Ketones Urine Blood Urine Nitrite Urine Bilirubin Urine Urobilinogen Ur Leukocyte Esterase Acetone, Qual 02/23/18 02/23/18 00:45 03:14 WBC RBC Hgb Hct MCV MCH MCHC RDW Plt Count MPV Gran % Lymphocytes % Monocytes % Eosinophils % Basophils % PT INR APTT VBG pH Sodium Potassium Chloride Carbon Dioxide Anion Gap BUN Creatinine Estimated GFR POC Glucose 294 H Random Glucose 365 H Hemoglobin A1c Calcium Magnesium Total Bilirubin AST ALT Alkaline Phosphatase Total Protein Albumin Globulin Albumin/Globulin Ratio Urine Color Urine Appearance Urine pH Ur Specific [place] Urine Protein Urine Glucose (UA) Urine Ketones Urine Blood Urine Nitrite Urine Bilirubin Urine Urobilinogen Ur Leukocyte Esterase Acetone, Qual VTE H&P Assessment - Risk for VTE Risk for VTE: Yes Risk Level: Low Risk Assessment Date: 02/23/18 Risk Assessment Time: 06:43 VTE Orders Placed or Will Be Placed: No VTE Reason for No Prophylaxis: Not Indicated (Pt. is on coumadin) Plan - Inpatient Certification Inpatient Certification: Admit to inpatient care: Based on my medical assessment, after consideration of patient's risk factors (age, co-morbidities and patient presenting symptoms and acuity), I expect that this patient will remain in the hospital greater than or equal to two midnights and that the services needed warrant inpatient care because: Patient Risk Factors: [] Estimated length of stay: [] The patient may reasonably be expected to be discharged or transferred to a hospital within 96 hours after admission to [facility]. Services needed: [] Post hospital care (if known): [] I certify that my determination is in accordance with my understanding of Medicare requirements for reasonable and necessary inpatient services. - Detailed Diagnosis and Plan (1) Hyperglycemia Current Visit: Yes Status: Acute Base Code: R73.9 - HYPERGLYCEMIA, UNSPECIFIED Comment: 02/23/18: -Glucose in ED was up to 856, now ranging from 294-374, A1C was 14.7 -Insulin drip was stopped and resumed pt's lantus 36 units bid and moderate sliding scale for reg unsulin started. -E lytes have remained stable, pt. in NSR on tele (2) Dental infection Current Visit: Yes Status: Acute Base Code: K04.7 - PERIAPICAL ABSCESS WITHOUT SINUS Comment: 02/23/18: -Unasyn 1.5g q6h IV for dental infection (3) At risk for deep venous thrombosis Current Visit: Yes Status: Acute Base Code: Z91.89 - OTH PERSONAL RISK FACTORS, NOT ELSEWHERE CLASSIFIED Comment: 02/23/18: -Hx of PE and DVT -Pt. is on 7mg coumadin daily -pharmacy to manage dosing upon f/u with PCP (4) Full code status Current Visit: Yes Status: Acute Base Code: Z78.9 - OTHER SPECIFIED HEALTH STATUS Comment: 02/23/18: -Pt. is a full code
[2018-02-23] MEDS: POTASSIUM CHL 20MEQ IN 1L NS 20 MEQ/1,000 ML BAG IV SCH ×3 (07:19→10:56)
[2018-02-23 08:15] LABS: BLOOD UREA NITROGEN 29 mg/dL (8-23); CREATININE 1.1 mg/dL (0.7-1.2); EST GLOMERULAR FILTRATION RATE > 60 mL/min; GLUCOSE,RANDOM 313 mg/dL (74-109)
[2018-02-23] MEDS: GEMFIBROZIL 600 MG TABLET PO SCH (09:28)
[2018-02-23] MEDS: GABAPENTIN 300 MG CAPSULE PO SCH (09:29)
[2018-02-23] MEDS: PANTOPRAZOLE SODIUM 40 MG TABLET PO SCH (09:29)
[2018-02-23] MEDS: DULOXETINE HCL 30 MG CAPSULE.DR PO SCH (09:29)
[2018-02-23] MEDS: METOPROLOL TART 50 MG TABLET PO SCH (09:31)
[2018-02-23] MEDS: NOVOLOG FLEXPEN (INSULIN ASPART) 100 UNITS/ML SQ SCH ×2 (09:34→11:56)
[2018-02-23] MEDS ORDERED: LEVEMIR FLEXTOUCH 100 UNIT/ML INSULIN PEN SQ SCH (10:00)
[2018-02-23] MEDS ORDERED: SYMBICORT INH SCH (10:00)
[2018-02-23] MEDS ORDERED: ATORVASTATIN 20 MG TABLET PO SCH (10:00)
[2018-02-23] MEDS ORDERED: CLOPIDOGREL 75MG TABLET PO SCH (10:00)
[2018-02-23] MEDS ORDERED: ISOSORBIDE MONONITRATE 30 MG TAB.ER.24H PO SCH (10:00)
[2018-02-23] MEDS ORDERED: WARFARIN 1 MG TABLET PO SCH (16:00)
[2018-02-23] MEDS ORDERED: WARFARIN 5 MG TAB PO SCH (16:00)
--- NOTE | 2018-02-23 16:56 | Discharge Summary ---
Providers Discharge Summary Date: 02/23/18 Date of admission: 02/22/18 16:30 Expected Date of Discharge: 02/23/18 Attending physician: GERMÁN CUETO Primary care physician: GERMÁN CUETO Physical Exam - Vital Signs Vital Signs: Vital Signs - Last 24 Hrs Temp Pulse Resp BP BP Pulse Ox 02/23/18 14:00 98.0 F 59 L 18 117/76 95 02/23/18 10:00 98.8 F 76 18 136/66 98 02/23/18 09:00 18 02/23/18 06:00 97.7 F 64 17 149/83 97 02/23/18 02:00 97.5 F L 59 L 16 159/82 97 02/22/18 22:00 69 16 136/81 98 02/22/18 19:41 97.9 F 81 16 133/66 95 02/22/18 18:00 98.0 F 80 16 156/82 94 L - General General Appearance: Alert, Oriented x3, Cooperative, No acute distress Limitations: No limitations - Head Head exam: Normal inspection - Eye Eye exam: Normal appearance. negative: Conjunctival injection, Periorbital swelling, Periorbital tenderness, Scleral icterus - ENT ENT exam: Normal exam Ear exam: Normal external inspection Nasal Exam: Normal inspection Mouth exam: Normal external inspection Teeth exam: Dental caries, Dental tenderness # (7) Throat exam: Normal inspection - Neck Neck exam: Normal inspection, Full ROM. negative: Tenderness - Respiratory Respiratory exam: Normal lung sounds bilaterally. negative: Respiratory distress, Rhonchi, Stridor, Wheezes - Cardiovascular Cardiovascular Exam: Regular rate, Normal rhythm, Normal heart sounds - GI/Abdominal GI/Abdominal exam: Soft, Other (Morbidly obese). negative: Distended, Guarding , Rebound, Rigid, Tenderness - Rectal Rectal exam: Deferred - exam: Deferred - Extremities Extremities exam: Normal inspection, Full ROM, Normal capillary refill. negative: Tenderness - Back Back exam: Denies: CVA tenderness (R), CVA tenderness (L) - Neurological Neurological exam: Alert, Normal gait, Oriented X3 - Psychiatric Psychiatric exam: Normal affect, Normal mood - Skin Skin exam: Dry, Intact, Normal color, Warm Hospitalization - Hospitalization Admission Diagnosis: hyperglycemia, dehydration, dental infection - Problem List/Discharge Diagnosis (1) Hyperglycemia Current Visit: Yes Status: Acute Base Code: R73.9 - HYPERGLYCEMIA, UNSPECIFIED Comment: 02/23/18: -Glucose in ED was up to 856, now ranging from 294-374, A1C was 14.7 -Insulin drip was stopped and resumed pt's lantus 36 units bid and moderate sliding scale for reg unsulin started. -E lytes have remained stable, pt. in NSR on tele -Plan to d/c home with home insuline regimen: Lantus 36 units bid and 15 units regular tid. (2) Dental infection Current Visit: Yes Status: Acute Base Code: K04.7 - PERIAPICAL ABSCESS WITHOUT SINUS Comment: 02/23/18: -d/c'd unasyn and changed to Augmentin 875/125mg bid for 7 days for discharge (3) At risk for deep venous thrombosis Current Visit: Yes Status: Acute Base Code: Z91.89 - OTH PERSONAL RISK FACTORS, NOT ELSEWHERE CLASSIFIED Comment: 02/23/18: -Hx of PE and DVT -Pt. is on 7mg coumadin daily -pharmacy to manage dosing upon f/u with PCP (4) Full code status Current Visit: Yes Status: Acute Base Code: Z78.9 - OTHER SPECIFIED HEALTH STATUS Comment: 02/23/18: -Pt. is a full code - Hospitalization Course Disposition: Home, Self-Care Hospital Course: Mr. Rhoades ia a 62 year-old male who presented to the ED on 02/22/18 with c/o elevated blood sugar- his meter at home registered "high". He stated that he had not checked his sugar at home prior to this for about 3 months, but that he has been taking his diabetes meds as directed. He has had a front upper tooth infection for about 1 month. He states has has been increasingly thirsty and urinating more often, he denied confusion, headaches, nausea, and vomitis. No chest pain. No fever. His history includes IDDM, coumadin use ( pt. is unsure of specific reason or last INR), HTN, MIx4 [id number], DVT, PE, RASHEL , HL, CVA, ex-smoker, depression, arthritis, and GERD. He states that his PCP is at a free clinic in [place], however, he is looking to establish care elsewhere. In the ED, his vital signs were stable. His initial glucose was 550 at 0730 , it increased to 856 at 1430. Urine was negative for ketones, pH was 7.34, HCO3 20, AG 18, negative acetone, K 4.8, BUN 42, Cr 1.5, normal LFTs. Pt. was admitted for glycemic control, hydration, and electrolyte management. IV abx were also initiated for his tooth infection. 02/22/18 1700: Pt. just arrived to med/surg unit. He is sitting up in bed. He denies headache/n/v. Insulin drip started at 5 units per hour, will continue to monitor labs, tele, and vitals. A1C 14.9- goal is to decrease glucose near pt's baseline- no lower than 250 during hospitalization to avoid hypoglycemia symptoms. 02/23/18 1010: Pt. is sitting up in bed. Insulin drip was stopped at 0500, accucheck this morning was 313. Will restart pt's home lantus dose of 36 units BID and start moderate sliding scale QIDAC. Lytes have remained stable. Continuing unasyn 1.5g q3h for dental infection. Case management set pt. up to establish care in the [facility]. 02/23/18 1700: Pt. is sitting up in bed and currently has family members visiting. He stated that he would like to be discharged home this evening. I discussed his plan of care with him, and he states he is willing to comply to his insulin regimen (he was not taking his long-acting for 1 week prior to admission due to cost). Augmentin 875/125 bid for 7 days ordered for dental infection. Pt. is to f/u with Dr. Cueto in [facility] on 03/08 and will address possible need to change/increase insulin and resume monitoring of pt's coumadin therapy at that time. Procedures: Cardiology Procedures 02/22/18 14:29 Cutlet Maker Pork NOW 02/22/18 17:27 Cutlet Maker Pork .Continuous Abnormal Labs: Abnormal Lab Results 02/22/18 02/22/18 02/22/18 Range/Units 07:40 14:30 14:30 RBC 3.97 L (4.40-5.70) M/uL Hgb 11.3 L (14.0-18.0) gm/dl Hct 33.3 L (42.0-52.0) % Sodium 127 L 121 L (136-145) mmol/L Potassium 4.8 H (3.4-4.5) mmol/L Chloride 90 L 83 L (98-107) mmol/L Carbon Dioxide 20.0 L (22-29) mmol/L Anion Gap 18.0 H (7-16) BUN 37 H 42 H (8-23) mg/dL Creatinine 1.4 H 1.5 H (0.7-1.2) mg/dL POC Glucose (70-110) mg/dL Random Glucose 550 H* > 856 H* (74-109) mg/dL Hemoglobin A1c (4.0-6.00) % Serum Osmolality (280-295) mOsm/kg Urine Glucose (UA) (NEGATIVE) 02/22/18 02/22/18 02/22/18 Range/Units 14:30 14:45 15:15 RBC (4.40-5.70) M/uL Hgb (14.0-18.0) gm/dl Hct (42.0-52.0) % Sodium (136-145) mmol/L Potassium (3.4-4.5) mmol/L Chloride (98-107) mmol/L Carbon Dioxide (22-29) mmol/L Anion Gap (7-16) BUN (8-23) mg/dL Creatinine (0.7-1.2) mg/dL POC Glucose (70-110) mg/dL Random Glucose (74-109) mg/dL Hemoglobin A1c 14.90 H (4.0-6.00) % Serum Osmolality 319 H (280-295) mOsm/kg Urine Glucose (UA) >=1000 mg/dl H (NEGATIVE) 02/22/18 02/22/18 02/23/18 Range/Units 17:49 21:40 00:45 RBC (4.40-5.70) M/uL Hgb (14.0-18.0) gm/dl Hct (42.0-52.0) % Sodium 126 L 128 L (136-145) mmol/L Potassium (3.4-4.5) mmol/L Chloride 89 L 91 L (98-107) mmol/L Carbon Dioxide 21.0 L 21.0 L (22-29) mmol/L Anion Gap (7-16) BUN 39 H 36 H (8-23) mg/dL Creatinine 1.3 H 1.4 H (0.7-1.2) mg/dL POC Glucose (70-110) mg/dL Random Glucose 606 H* 502 H* 365 H (74-109) mg/dL Hemoglobin A1c (4.0-6.00) % Serum Osmolality (280-295) mOsm/kg Urine Glucose (UA) (NEGATIVE) 02/23/18 02/23/18 02/23/18 Range/Units 03:14 06:44 07:49 RBC (4.40-5.70) M/uL Hgb (14.0-18.0) gm/dl Hct (42.0-52.0) % Sodium 134 L (136-145) mmol/L Potassium (3.4-4.5) mmol/L Chloride (98-107) mmol/L Carbon Dioxide 19.0 L (22-29) mmol/L Anion Gap (7-16) BUN 29 H (8-23) mg/dL Creatinine (0.7-1.2) mg/dL POC Glucose 294 H 236 H (70-110) mg/dL Random Glucose 313 H (74-109) mg/dL Hemoglobin A1c (4.0-6.00) % Serum Osmolality (280-295) mOsm/kg Urine Glucose (UA) (NEGATIVE) 02/23/18 Range/Units 11:42 RBC (4.40-5.70) M/uL Hgb (14.0-18.0) gm/dl Hct (42.0-52.0) % Sodium (136-145) mmol/L Potassium (3.4-4.5) mmol/L Chloride (98-107) mmol/L Carbon Dioxide (22-29) mmol/L Anion Gap (7-16) BUN (8-23) mg/dL Creatinine (0.7-1.2) mg/dL POC Glucose 374 H (70-110) mg/dL Random Glucose (74-109) mg/dL Hemoglobin A1c (4.0-6.00) % Serum Osmolality (280-295) mOsm/kg Urine Glucose (UA) (NEGATIVE) Condition at Discharge: (2) Stable VTE Discharge VTE Reason For No Overlap Therapy: Not Indicated (Pt. is on coumadin) Discharge Medications - Discharge Medications Prescriptions: Amoxicillin/Potassium Clav [Augmentin 875Mg/125Mg] 1 each PO BID #14 tablet Insulin Aspart [Novolog] 15 unit SQ TID 14 Days #1 cartridge Insulin Glargine,Hum.rec.anlog [Lantus] 36 unit SQ BID 14 Days #1 vial Home Medications: Ambulatory Orders Budesonide/Formoterol Fumarate [Symbicort 160-4.5 Mcg Inhaler] 10.2 gm IH DAILY 10/20/15 [Last Taken 12/31/17] Clopidogrel Bisulfate [Plavix] 75 mg PO DAILY 10/20/15 [Last Taken 12/31/17] Gabapentin [Neurontin] 300 mg PO BID 10/20/15 [Last Taken 12/31/17] Gemfibrozil [Lopid] 600 mg PO BID 10/20/15 [Last Taken 12/31/17] Hydrochlorothiazide [Hctz] 25 mg PO DAILY 10/20/15 [Last Taken 12/31/17] Isosorbide Mononitrate [Imdur] 30 mg PO DAILY 10/20/15 [Last Taken 12/31/17] Lisinopril 30 mg PO DAILY 10/20/15 [Last Taken 12/31/17] Metformin HCl 1,000 mg PO BID 10/20/15 [Last Taken 12/31/17] Metoprolol Tartrate [Lopressor] 100 mg PO BID 10/20/15 [Last Taken 12/31/17] Pantoprazole Sodium [Protonix] 40 mg PO BID 10/20/15 [Last Taken 12/31/17] Rosuvastatin Calcium [Crestor] 40 mg PO DAILY 10/20/15 [Last Taken 12/31/17] Trazodone HCl [Desyrel] 50 mg PO QHS 10/20/15 [Last Taken 12/31/17] Warfarin Sodium [Coumadin] 6 mg PO DAILY 10/20/15 [Last Taken 12/31/17] Duloxetine HCl [Cymbalta] 60 mg PO BID 02/22/18 [Last Taken Unknown] Amoxicillin/Potassium Clav [Augmentin 875Mg/125Mg] 1 each PO BID #14 tablet [Last Taken Unknown] Insulin Aspart [Novolog] 15 unit SQ TID 14 Days #1 cartridge 02/23/18 [Last Taken Unknown] Insulin Glargine,Hum.rec.anlog [Lantus] 36 unit SQ BID 14 Days #1 vial 02/23/18 [Last Taken Unknown] Discharge Plan - Discharge Instructions Activity at Discharge: Resume Usual Activities As Tolerated Diet at Discharge: Diabetic Diet Additional Instructions: Resume your usual insulin regime Start augmentin (antibiotic) tablets- take 1 tablet twice daily for total of 7 days. First dose should be at 10pm tonight. Make sure to take this medication with food to avoid upset stomach. Follow up with new primary care provider, Dr. Cueto, at [facility] on March 09, 2018 at 11:20 as scheduled. Please bring new patient paperwork to first appointment. Call or return to the ED if your symptoms worsen, if you develop fever, or any chest pain. Quality Measures - Quality Measures Quality Measures: Documentation of Current Medications in Medical Record, Screening for High Blood Pressure and F/U Documented - Current Medications Quality Measure: Measure #130: Documentation of Current Medications Documentation of Current Medications: <Current Medications Documented/Reviewed> [G8427] - Blood Pressure Screening Quality Measure: Screening for High Blood Pressure and Follow-Up Documented Does Patient Have Any of the Following: Active Dx of HTN Blood Pressure Classification: Hypertensive Reading Systolic Measurement: 146 Diastolic Measurement: 74 Screening for High Blood Pressure: Patient Exclusion, Hx of HTN [G9744] - Elder Abuse Suspicion Index EASI Reference Information: Kelly DEWITT, Yamini C, Malathi D, Ranjith Alfred.Development and validation of a tool to assist physicians identification of elder abuse: The Elder Abuse Suspicion Index (EASI ). Journal of Elder Abuse and Neglect, 2008; 20 (3): 276-300.
[2018-02-23] MEDS ORDERED: AMOXICILLIN/POTASSIUM CLAV 875MG/125MG TABLET PO SCH (22:00)
== END 2018-02-23 17:23 | disposition home or self-care (01) | DRG 641 ==
LOC: ER 14:19 → MEDSURG 16:30
PROVIDERS: ADMIT Internal Medicine; ATTEND Internal Medicine
DX: R73.9 Hyperglycemia, unspecified (principal); E86.0 Dehydration; N28.9 Disorder of kidney and ureter, unspecified; K04.7 Periapical abscess without sinus; I25.2 Old myocardial infarction; I10 Essential (primary) hypertension; E78.00 Pure hypercholesterolemia, unspecified; E11.9 Type 2 diabetes mellitus without complications; Z79.4 Long term (current) use of insulin; Z79.01 Long term (current) use of anticoagulants; I25.10 Atherosclerotic heart disease of native coronary artery without angina pectoris; G62.9 Polyneuropathy, unspecified; M19.041 Primary osteoarthritis, right hand; M19.042 Primary osteoarthritis, left hand; D64.9 Anemia, unspecified; Z86.711 Personal history of pulmonary embolism; Z86.73 Personal history of transient ischemic attack (TIA), and cerebral infarction without residual deficits; Z95.5 Presence of coronary angioplasty implant and graft; Z87.891 Personal history of nicotine dependence
CPT/HCPCS: 36416; 80048; 80053; 81003; 82009; 82800; 82947; 82948; 83036; 83735; 85025; 85610; 85730; 96361; 96365; 96366; 96368; 99223; 99285; J0295; J7030